=== PATIENT | female | born 1960 | race Caucasian/White ===

== ENCOUNTER → 2023-10-23 12:01 | Outpatient (REF) | payer MEDICARE, OTHER, SELFPAY | LOC: HWRAD 12:01 | PROVIDERS: ATTENDING PHYSICIAN Internal Medicine Critical Care Medicine; FAMILY PHYSICIAN Nurse Practitioner Primary Care | DX: C34.92 Malignant neoplasm of unspecified part of left bronchus or lung (principal) | CPT/HCPCS: 71250 ==

== ENCOUNTER → 2024-05-06 10:29 | Outpatient (REF) | payer MEDICARE, OTHER, SELFPAY | LOC: HWRAD 10:29 | PROVIDERS: ATTENDING PHYSICIAN Internal Medicine Critical Care Medicine; FAMILY PHYSICIAN Nurse Practitioner Primary Care | DX: C34.92 Malignant neoplasm of unspecified part of left bronchus or lung (principal); M25.511 Pain in right shoulder; M25.512 Pain in left shoulder; M54.12 Radiculopathy, cervical region | CPT/HCPCS: 71250; 72050; 73030 ==

== ENCOUNTER → 2025-01-13 10:21 | Outpatient (REF) | payer MEDICARE, OTHER, SELFPAY | LOC: HWRAD 10:21 | PROVIDERS: ATTENDING PHYSICIAN Internal Medicine Critical Care Medicine; FAMILY PHYSICIAN Nurse Practitioner Primary Care | DX: C34.92 Malignant neoplasm of unspecified part of left bronchus or lung (principal); R91.8 Other nonspecific abnormal finding of lung field | CPT/HCPCS: 71250 ==

== ENCOUNTER → 2025-02-23 14:15 | Outpatient (REF) | payer MEDICARE, OTHER, SELFPAY | LOC: RAD 14:15 | PROVIDERS: ATTENDING PHYSICIAN Internal Medicine Critical Care Medicine; FAMILY PHYSICIAN Nurse Practitioner Primary Care | DX: C34.92 Malignant neoplasm of unspecified part of left bronchus or lung (principal); R51.9 Headache, unspecified; R94.2 Abnormal results of pulmonary function studies; I25.10 Atherosclerotic heart disease of native coronary artery without angina pectoris | CPT/HCPCS: 70470; 93306; Q9967 ==

== ENCOUNTER 2025-03-05 09:20 | Outpatient (REF) | payer MEDICARE, OTHER, SELFPAY ==
[2025-03-05] VITALS (8 sets, daily range): BP systolic 64–130; BP diastolic 71–83; BMI 30.2
[2025-03-05 09:37] LABS: Hematocrit 41.8 % (37.0-47.0); Hemoglobin 14.4 g/dL (12.0-16.0); Mean Corp Hgb Conc. 34.4 g/dL (33.0-37.0); Mean Corpuscular Volume 92.1 fL (81.0-99.0); Nucleated Red Blood Cells % 0 %; Platelet Count 246 10^3/uL (130-400); Red Cell Dist. Width 13.2 % (11.5-14.5)
[2025-03-05 09:50] LABS: INR 0.96; PT 13.2 Sec (11.4-14.6)
== END 2025-03-05 14:30 | disposition home or self-care (01) ==
LOC: RADI 09:20
PROVIDERS: ATTENDING PHYSICIAN Nurse Practitioner Family; FAMILY PHYSICIAN Nurse Practitioner Primary Care; REFERRING PHYSICIAN Physician Assistant
DX: C34.12 Malignant neoplasm of upper lobe, left bronchus or lung (principal); D68.8 Other specified coagulation defects
CPT/HCPCS: 32408; 36415; 71045; 81459; 85025; 85610; 88305; 88333; 88341; 88342; 99152; 99153

== ENCOUNTER → 2025-04-14 20:01 | Outpatient (REF) | payer MEDICARE, OTHER, SELFPAY | LOC: MRI 20:01 | PROVIDERS: ATTENDING PHYSICIAN Radiology Radiation Oncology; FAMILY PHYSICIAN Nurse Practitioner Primary Care | DX: C34.12 Malignant neoplasm of upper lobe, left bronchus or lung (principal) | CPT/HCPCS: 70553; A9575 ==

== ENCOUNTER → 2025-05-08 19:38 | Outpatient (REF) | payer MEDICARE, OTHER, SELFPAY | LOC: MRI 19:38 | PROVIDERS: ATTENDING PHYSICIAN Radiology Radiation Oncology; FAMILY PHYSICIAN Nurse Practitioner Primary Care | DX: C34.12 Malignant neoplasm of upper lobe, left bronchus or lung (principal) | CPT/HCPCS: 74183; A9575 ==

== ENCOUNTER 2025-05-18 06:33 | Day surgery (SDC) | payer MEDICARE, OTHER, SELFPAY ==
[2025-05-06 14:03] VITALS: BMI 30.7
[2025-05-18] VITALS (9 sets, daily range): BP systolic 107–168; BP diastolic 74–94; BMI 30.7
[2025-05-18] MEDS: NORMOSOL-R/PLASMALYTE-A 1000 IV (12:37)
[2025-05-18] MEDS: DILAUDID 0.25 MG IV (15:35)
--- NOTE | 2025-05-18 16:19 | OR.RPT ---
Operative Report
Operative Report
Patient name: Karny Marcus
Date of : 1960

Date of operation: 05/18/2025
Preoperative diagnosis:
1. Throat mass
2. Tonsil asymmetry
Postoperative diagnosis:
1. Throat mass
2. Tonsil asymmetry
Operation/procedures performed:
1. Direct laryngoscopy with biopsy
Surgeon: Bernardo Crooks DO
Anesthesia: General, 7.0 ETT
Anesthesiologist: Radha
Surgical Indications: This is a 65-year-old woman who presents to the otolaryngology department with a chief complaint of left base of tongue asymmetry, fullness and asymmetric FDG avidity seen on a PET scan in January 2025 that was done for ongoing
evaluation and treatment of her lung cancer. She was found to have a new pulmonary nodule which was biopsied and confirmed to be malignant. Prior to any further treatment of pulmonary nodule she needed to have this base of tongue asymmetry
evaluated as it may influence treatment decisions. She has no dysphagia, odynophagia, hemoptysis, sore throat or dysphonia. We discussed the risks benefits and alternatives to close observation of this asymmetrically enlarged left base of tongue
with asymmetric FDG avidity and the recommendation based on imaging characteristics and an office flexible laryngoscopy wants to proceed to the operating room for direct laryngoscopy and biopsy. The patient accepted these risks and provided
informed written consent.
Details of Procedure: The patient was met in the preoperative holding area where informed written consent was reviewed and all questions were answered to the patient's satisfaction. The patient was then brought to the operating room and
transferred supine onto the operating table. The patient was secured to the table. General anesthesia was induced and the patient was intubated without difficulty orotracheally with a 7.0 endotracheal tube. The table was rotated 90 degrees away
from anesthesia. A surgical timeout was performed confirming the necessary perioperative information. A dental guard was placed to protect the upper dentition. An anterior commissure laryngoscope was then used to perform direct laryngoscopy. The
right tonsil with right base of tongue were normal. The left tonsil and left base of tongue are asymmetrically enlarged and slightly firmer than the right. The vallecula was normal. The epiglottis, aryepiglottic fold, arytenoids and false vocal
folds are normal. The true vocal folds and subglottis were normal. The bilateral piriform sinuses were normal. The remainder the hypopharynx was normal. Attention was then turned back to the left tonsil and base of tongue where biopsies were
taken of each. Hemostasis was achieved with Afrin-soaked pledgets. Once hemostasis was confirmed the pledgets were removed and the cottonoid counts were correct. This concluded the procedure. The patient was rotated back to the anesthesia team
where she emerged safely from anesthesia and was extubated without difficulty. The patient was brought to the PACU in stable condition.
Complications: None immediately present
Blood loss: 5cc
Disposition:Stable to PACU followed by discharge to home
== END 2025-05-18 16:45 | disposition home or self-care (01) ==
LOC: SDS 06:33
PROVIDERS: ATTENDING PHYSICIAN Student in an Organized Health Care Education/Training Program
DX: C88.40 Extranodal marginal zone B-cell lymphoma of mucosa-associated lymphoid tissue [MALT-lymphoma] not having achieved remission (principal); K14.8 Other diseases of tongue; C34.90 Malignant neoplasm of unspecified part of unspecified bronchus or lung
CPT/HCPCS: 31535; 88305; 88341; 88342